=== PATIENT | male | born 1970 | race Caucasian/White ===

== ENCOUNTER 2018-06-21 08:35 | Inpatient (IN) ==
[2018-06-21] MEDS ORDERED: ONDANSETRON INJ 2 MG/ML 2 ML VIAL IV STA (09:00)
[2018-06-21] MEDS ORDERED: SODIUM CHLORIDE 0.9% 1000ML 1,000 ML IV SCH (09:00)
[2018-06-21 09:23] LABS: iSTAT Creatinine 0.8 mg/dl (0.6-1.3); iSTAT Hemoglobin 13.9 g/dl (14.0-18.0); iSTAT Ionized Calcium 1.15 mmol/l (1.12-1.32); iSTAT Potassium 3.5 mEq/L (3.3-5.0)
[2018-06-21 09:23] LABS: Basophils # (auto) 0.02 K/uL (0-0.2); Basophils % (auto) 0.3 %; Eosinophils # (auto) 0.01 K/uL (0-0.5); Eosinophils % (auto) 0.1 %; Hematocrit (blood only) 40.7 % (42-52); Hemoglobin 13.8 g/dL (14.0-18.0); Immature Granulocytes # (auto) 0.02 K/uL (0.00-0.02); Immature Granulocytes % (auto) 0.3 %; Lymphocytes # (auto) 0.66 K/uL (1.2-3.4); Lymphocytes % (auto) 8.3 %; Mean Corpuscular Hgb Conc 33.9 g/dL (32-36); Mean Corpuscular Volume 90.4 fL (80-100); Mean Platelet Volume 9.9 fL (7.4-10.4); Monocytes # (auto) 0.27 K/uL (0.11-0.59); Monocytes % (auto) 3.4 %; Neutrophils # (auto) 6.93 K/uL (1.4-6.5); Neutrophils % (auto) 87.6 %; Platelet Count 122 K/uL (130-400); RDW Coefficient of Variation 13.9 % (11.5-14.5); RDW Standard Deviation 45.1 fL (36.4-46.3); White Blood Count 7.91 K/uL (4.8-10.8)
[2018-06-21] MEDS ORDERED: MoRPHine SULFATE 2 MG/ML CARP IV STA ×3 (09:36→11:45)
[2018-06-21 09:43] LABS: Albumin Level 4.5 gm/dl (3.4-5.0); BUN Creatinine Ratio 12.8 (10-20); Calcium 9.4 mg/dl (8.5-10.1); Creatinine Clr Calc Pharmacy 74.9 ml/min; Est GFR (African American) 109.4; Est GFR (Non-African American) 94.4; Potassium 3.5 mmol/L (3.5-5.1)
[2018-06-21 09:46] LABS: Albumin Globulin Ratio 1.2 (0.9-2); Bilirubin,Total 0.5 mg/dl (0.2-1); Globulin 3.6 gm/dl (2.5-4.0); Total Protein 8.1 gm/dl (6.4-8.2)
[2018-06-21] MEDS ORDERED: IOVERSOL 100ml IV PRN (09:53)
--- NOTE | 2018-06-21 10:24 | CT Scan Report ---
CT abd pelvis IV con only CLINICAL HISTORY: Abdominal pain and vomiting. History of colon carcinoma. COMPARISON STUDY: 02/23/2018 TECHNIQUE: The patient was scanned in a dynamic helical fashion during intravenous administration of 93 cc of Optiray 320. A dose lowering technique was utilized adhering to the principles of ALARA. CT DOSE: 278.22 mGy.cm FINDINGS: Lower chest: The heart is normal in size and configuration, without pericardial effusion. The lung ba ses and pleural spaces are clear. Liver: The contrast-enhanced liver is normal in size, contour, and attenuation. There is no intrahepa tic biliary ductal dilatation. The hepatic veins and portal veins are patent. Gallbladder: Unremarkable. Spleen: Normal in size and attenuation. Pancreas: Unremarkable. Adrenal glands: Unremarkable. Kidneys: There is an 8 mm left renal cyst. No solid renal masses are visualized. There is no hydronep hrosis. Bowel: Postsurgical changes are present within the sigmoid. The sigmoid stent has been removed. There are mildly dilated left mid abdominal small bowel loops. There is slight tethering of the mesentery as visualized on coronal reformatted images. In addition there is a subtle mesenteric swelling patter n. An internal hernia cannot be excluded. The appendix appears normal. There is no acute diverticulit is. Peritoneum: There is no intraperitoneal free air or abdominal ascites. There is a tiny fat-containing umbilical hernia. Vasculature: The abdominal aorta is normal in course and caliber. Adenopathy: None. Pelvic viscera: The bladder, and pelvic viscera are unremarkable. Skeletal structures: No destructive osseous lesions are seen. IMPRESSION: 1. Interval colonic surgery with removal of the sigmoid stents 2. Normal appendix 3. Mildly dilated left upper quadrant small bowel loops. The findings may indicate a low-grade partia l small bowel obstruction. A high-grade bowel obstruction is not felt to be present. There is a subtl e mesenteric swirl pattern, as well as subtle tethering of the mesentery. And internal hernia cannot be excluded. Electronically signed by: Teo Holguin M.D. 06/21/2018 10:22 AM
[2018-06-21 11:08] LABS: Appearance Urine Turbid (Clear); Bacteria Urine Automated Negative (Negative); Bilirubin Urine Negative (Negative); Blood Urine Trace (Negative); Color Urine Dark Yellow; Epithelial Cell Urine Auto 20-30 /lpf (0-5); Glucose Urine UA Trace (Negative); Leukocyte Esterase Urine Negative (Negative); Nitrite Urine Negative (Negative); Protein Urine 1+ (Negative); Specific Gravity Urine 1.033 (1.000-1.030); Urobilinogen Urine Negative (Negative); pH Urine 5.5 (4.5-7.5)
[2018-06-21 11:10] LABS: Ketones Urine 3+ (Negative)
--- NOTE | 2018-06-21 12:14 | Surgery Consultation ---
Date of Consultation June 21, 2018 Assessment & Plan (1) Abdominal pain: 47 year-old male with history of colon cancer s/p sigmoid colon resection in February of 2018 currently on chemotherapy who presented to emergency department with nausea, vomiting, and abdominal pain x [address] scan showing mildly dilated small bowel loops in left upper abdomen in which a low grade partial SBO is possible. There is subtle mesenteric swirling and tethering in which an internal hernia cannot be excluded. ON examination his abdomen is mildly distended, soft, tender in the LLQ and more so in RLQ with guarding however no rigidity or peritonitis. Reviewed CT scan images with Dr. Holguin in which there is no signs of high grade bowel obstruction. Plan: No acute surgical indication required at this time. Reviewed CT scan images with patient and discussed possible need for surgical intervention if abdominal pain increases or if not return of bowel function. Recommend lactic acid Recommend admission by hospitalist Recommend conservative measures : NPO, IV fluids, pain management as needed, IV Zofran as needed. Recommend NGT is vomiting reoccurs Repeat am labs Encourage OOB to chair and ambulate SCDs for DVT prophylaxis Dr. Grimm has seen and examined patient, agrees with above. (2) Nausea and vomiting: likely secondary to low grade partial SBO plan as above History of Present Illness Reason for Consultation: Partial SBO, RLQ abdominal pain Requesting Physician: Vincenzo History of Present Illness Tony is a 47 year-old male with history of colon cancer s/p sigmoid colon resection by Dr. Valverde in February of 2018 and currently undergoing chemotherapy every 2 weeks for 12 cycles. Tony presented to emergency department today with complaint of abdominal pain with associated nausea and vomiting. States he had nausea and vomiting yesterday afternoon and then abdominal pain started. Pain located in lower abdomen. Starts at the belly button and radiates to the lower quadrants. Pain more located on right side. Pain described as sharp stabbing pain. Currently rating pain 8/10. 6/10 on presentation. States pain severe at times that doubled him over. 3-4 episodes of vomiting this morning. States he usually has constipation due to the c hemotherapy. Denies of any diarrhea, blood in stools, or black/tarry stools. Usually does not get nauseated with chemo treatments. 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 Weight fluctuates with chemo treatments. Emergency room work-up included labs which showed no leukocytosis or neutropenia. CMP within normal limits. CT scan of abdomen and pelvis with IV contrast showing mildly dilated small bowel loops in left abdomen with subtle mesenteric swirl pattern and subtle tethering of the mesentary in which an internal hernia cannot be excluded. Allergies Allergy/AdvReac Type Severity Reaction Status Date / Time aspirin AdvReac Unknown Nose Bleed Verified 06/21/18 09:23 Home Medications Home Medications Medication Instructions Recorded Confirmed Type multivitamin 1 tab PO DAILY 02/23/18 06/21/18 History thiamine HCl (vitamin B1) 100 mg PO DAILY 02/23/18 06/21/18 History Patient History Social History Preferred Language: Japanese Beliefs That Will Affect Care: None Current Living Situation: Alone Feels Safe at Home: Yes Smoking Status: Never smoker Hx Alcohol Use: Yes (QUIT JANUARY 2018) Hx Substance Use: No Review of Systems Constitutional: as per Subjective / HPI and + anorexia; no fever and no sweats Respiratory: see below Gastrointestinal: as per Subjective / HPI, + abdominal pain, + bloating, + nausea, + vomiting and + constipation; no change in stools, no diarrhea/loose stools, no blood in stools and no melena Physical Exam Vital Signs (Past 24 Hours): Last Vital Signs Temp 36.7 C 06/21/18 08:40 Pulse 44 L 06/21/18 11:00 Resp 20 06/21/18 11:00 BP 150/84 H 06/21/18 11:00 Pulse Ox 97 06/21/18 11:00 Constitutional: WD/WN, vitals as above + thin; no acute distress Respiratory: no respiratory distress Gastrointestinal (Abdomen): Inspection/Auscultation: + abdomen distended (mild) Percussion/Palpation: + abdomen tender (in the lower abdomen , more so in RLQ), + guarding (RLQ) and abdomen soft; abdomen not rigid Skin: no rashes, warm and dry Psychiatric: Orientation: alert and oriented x 3 Affect: + flat affect Results & Data Laboratory Results 06/21/18 06/21/18 06/21/18 Range/Units 10:58 09:10 09:03 WBC (4.8-10.8) K/uL RBC (4.7-6.1) M/uL Hgb (14.0-18.0) g/dL POC Hgb 13.9 L (14.0-18.0) g/dl Hct (42-52) % POC Hct 41 L (42-52) % MCV (80-100) fL MCH (25-34) pg MCHC (32-36) g/dL RDW Std Deviation (36.4-46.3) fL RDW Coeff of Natasha (11.5-14.5) % Plt Count (130-400) K/uL MPV (7.4-10.4) fL Immature Gran % (Auto) % Neut % (Auto) % Lymph % (Auto) % [place] % (Auto) % Eos % (Auto) % Baso % (Auto) % Immature Gran # (Auto) (0.00-0.02) K/uL Neut # (Auto) (1.4-6.5) K/uL Lymph # (Auto) (1.2-3.4) K/uL [place] # (Auto) (0.11-0.59) K/uL Eos # (Auto) (0-0.5) K/uL Baso # (Auto) (0-0.2) K/uL POC Sodium 142 (135-144) mEq/L Sodium 141 (136-145) mmol/L POC Potassium 3.5 (3.3-5.0) mEq/L Potassium 3.5 (3.5-5.1) mmol/L POC Chloride 102 (101-112) mEq/L Chloride 104 (98-107) mmol/L Carbon Dioxide 26 (21-32) mmol/L POC Total CO2 26 (24-31) mEq/l Anion Gap 11.0 (3-11) POC Anion Gap 19.0 (16-25) mmol/L POC BUN 12 (7-18) mg/dl BUN 12 (7-18) mg/dl Creatinine 0.96 (0.6-1.4) mg/dl POC Creatinine 0.8 (0.6-1.3) mg/dl Est Cr Clr Drug Dosing 74.9 ml/min Est GFR ( Amer) 109.4 Est GFR (Non-Af Amer) 94.4 BUN/Creatinine Ratio 12.8 (10-20) Glucose 151 H (70-99) mg/dl POC Glucose (other) 155 H (70-99) mg/dl Calcium 9.4 (8.5-10.1) mg/dl POC Ioniz Calcium Jake 1.15 (1.12-1.32) mmol/l Total Bilirubin 0.5 (0.2-1) mg/dl AST 23 (15-37) U/L ALT 32 (12-78) U/L Alkaline Phosphatase 77 (45-117) U/L Total Protein 8.1 (6.4-8.2) gm/dl Albumin 4.5 (3.4-5.0) gm/dl Globulin 3.6 (2.5-4.0) gm/dl Albumin/Globulin Ratio 1.2 (0.9-2) Lipase 225 (73-393) U/L Urine Color Dark Yellow Urine Appearance Turbid H (Clear) Urine pH 5.5 (4.5-7.5) Ur Specific Oden 1.033 H (1.000-1.030) Urine Protein 1+ H (Negative) Urine Glucose (UA) Trace H (Negative) Urine Ketones 3+ H (Negative) Urine Blood Trace H (Negative) Urine Nitrite Negative (Negative) Urine Bilirubin Negative (Negative) Urine Urobilinogen Negative (Negative) Ur Leukocyte Esterase Negative (Negative) Urine WBC (Auto) 1-5 (0-5) /hpf Urine RBC (Auto) 5-10 H (0-4) /hpf U Hyaline Cast (Auto) 10-30 H (0-5) /lpf U Epithel Cells (Auto) 20-30 H (0-5) /lpf Urine Bacteria (Auto) Negative (Negative) 06/21/18 Range/Units 09:03 WBC 7.91 (4.8-10.8) K/uL RBC 4.50 L (4.7-6.1) M/uL Hgb 13.8 L (14.0-18.0) g/dL POC Hgb (14.0-18.0) g/dl Hct 40.7 L (42-52) % POC Hct (42-52) % MCV 90.4 (80-100) fL MCH 30.7 (25-34) pg MCHC 33.9 (32-36) g/dL RDW Std Deviation 45.1 (36.4-46.3) fL RDW Coeff of Natasha 13.9 (11.5-14.5) % Plt Count 122 L (130-400) K/uL MPV 9.9 (7.4-10.4) fL Immature Gran % (Auto) 0.3 % Neut % (Auto) 87.6 % Lymph % (Auto) 8.3 % [place] % (Auto) 3.4 % Eos % (Auto) 0.1 % Baso % (Auto) 0.3 % Immature Gran # (Auto) 0.02 (0.00-0.02) K/uL Neut # (Auto) 6.93 H (1.4-6.5) K/uL Lymph # (Auto) 0.66 L (1.2-3.4) K/uL [place] # (Auto) 0.27 (0.11-0.59) K/uL Eos # (Auto) 0.01 (0-0.5) K/uL Baso # (Auto) 0.02 (0-0.2) K/uL POC Sodium (135-144) mEq/L Sodium (136-145) mmol/L POC Potassium (3.3-5.0) mEq/L Potassium (3.5-5.1) mmol/L POC Chloride (101-112) mEq/L Chloride (98-107) mmol/L Carbon Dioxide (21-32) mmol/L POC Total CO2 (24-31) mEq/l Anion Gap (3-11) POC Anion Gap (16-25) mmol/L POC BUN (7-18) mg/dl BUN (7-18) mg/dl Creatinine (0.6-1.4) mg/dl POC Creatinine (0.6-1.3) mg/dl Est Cr Clr Drug Dosing ml/min Est GFR ( Amer) Est GFR (Non-Af Amer) BUN/Creatinine Ratio (10-20) Glucose (70-99) mg/dl POC Glucose (other) (70-99) mg/dl Calcium (8.5-10.1) mg/dl POC Ioniz Calcium Jake (1.12-1.32) mmol/l Total Bilirubin (0.2-1) mg/dl AST (15-37) U/L ALT (12-78) U/L Alkaline Phosphatase (45-117) U/L Total Protein (6.4-8.2) gm/dl Albumin (3.4-5.0) gm/dl Globulin (2.5-4.0) gm/dl Albumin/Globulin Ratio (0.9-2) Lipase (73-393) U/L Urine Color Urine Appearance (Clear) Urine pH (4.5-7.5) Ur Specific Oden (1.000-1.030) Urine Protein (Negative) Urine Glucose (UA) (Negative) Urine Ketones (Negative) Urine Blood (Negative) Urine Nitrite (Negative) Urine Bilirubin (Negative) Urine Urobilinogen (Negative) Ur Leukocyte Esterase (Negative) Urine WBC (Auto) (0-5) /hpf Urine RBC (Auto) (0-4) /hpf U Hyaline Cast (Auto) (0-5) /lpf U Epithel Cells (Auto) (0-5) /lpf Urine Bacteria (Auto) (Negative) Diagnostic Findings CT abd pelvis IV con only CLINICAL HISTORY: Abdominal pain and vomiting. History of colon carcinoma. COMPARISON STUDY: 02/23/2018 TECHNIQUE: The patient was scanned in a dynamic helical fashion during intravenous administration of 93 cc of Optiray 320. A dose lowering technique was utilized adhering to the principles of ALARA. CT DOSE: 278.22 mGy.cm FINDINGS: Lower chest: The heart is normal in size and configuration, without pericardial effusion. The lung bases and pleural spaces are clear. Liver: The contrast-enhanced liver is normal in size, contour, and attenuation. There is no intrahepatic biliary ductal dilatation. The hepatic veins and portal veins are patent. Gallbladder: Unremarkable. Spleen: Normal in size and attenuation. Pancreas: Unremarkable. Adrenal glands: Unremarkable. Kidneys: There is an 8 mm left renal cyst. No solid renal masses are visualized. There is no hydronephrosis. Bowel: Postsurgical changes are present within the sigmoid. The sigmoid stent has been removed. There are mildly dilated left mid abdominal small bowel loops. There is slight tethering of the mesentery as visualized on coronal reformatted images. In addition there is a subtle mesenteric swelling pattern. An internal hernia cannot be excluded. The appendix appears normal. There is no acute diverticulitis. Peritoneum: There is no intraperitoneal free air or abdominal ascites. There is a tiny fat-containing umbilical hernia. Vasculature: The abdominal aorta is normal in course and caliber. Adenopathy: None. Pelvic viscera: The bladder, and pelvic viscera are unremarkable. Skeletal structures: No destructive osseous lesions are seen. IMPRESSION: 1. Interval colonic surgery with removal of the sigmoid stents 2. Normal appendix 3. Mildly dilated left upper quadrant small bowel loops. The findings may indicate a low-grade partial small bowel obstruction. A high-grade bowel obstruction is not felt to be present. There is a subtle mesenteric swirl pattern, as well as subtle tethering of the mesentery. And internal hernia cannot be excluded.
[2018-06-21] MEDS ORDERED: HYDROmorphone INJ 0.5 MG/0.5 ML SYR ONE (13:19)
--- NOTE | 2018-06-21 13:42 | History and Physical Report ---
DATE OF ADMISSION: 06/21/2018 CHIEF COMPLAINT: Abdominal pain. HISTORY OF PRESENT ILLNESS: This is a 47-year-old male with past medical history significant for colon cancer, status post sigmoid colon resection in February 2018, currently on chemotherapy every 2 weeks for 12 weeks, presents with abdominal pain, nausea and vomiting. The patient's pain started yesterday and he has few episodes of vomiting, moderate in severity, currently improved with pain medications. He says he moved his bowels yesterday and it was normal. No blood in the stools or black stools. Normal bladder movements. No burning micturition, no hematuria. He says his appetite is okay until yesterday, he was sleeping okay and he said he might have lost a few pounds of weight. Denies any chest pain, no shortness of breath, no cough, no fever, no chills, no headache, no blurred vision, no earache, no runny nose, no sore throat, no difficulty swallowing. No rash, no easy bruising or bleeding. Currently, resting comfortable and hemodynamically stable. ALLERGIES: No known drug allergies. PAST MEDICAL HISTORY: As mentioned above. PAST SURGICAL HISTORY: Sigmoid colonoscopy and sigmoid colon resection. MEDICATIONS: Multivitamin, thiamine, folic acid. FAMILY HISTORY: Significant for paternal grandmother who had colon cancer. Father has diabetes. Mother has diabetes, and also his father and grandfather also diagnosed with colon cancer with colon and breast cancer in the mother's side. SOCIAL HISTORY: Single, lives alone. No tobacco. Used to drink alcohol in the past, but he says he is not drinking lately. No drug use. REVIEW OF SYMPTOMS: As per HPI. Rest of review of systems is negative. PHYSICAL EXAMINATION: GENERAL: The patient is of moderate build, not in acute distress. VITAL SIGNS: Temperature 36.7, pulse 44, blood pressure 155/84, oxygen 97% on room air. HEENT: No pallor, no icterus. Pupils equal, round, reactive to light. NECK: No JVD or neck masses, no carotid bruit. CARDIOVASCULAR: S1, S2 heard. Bradycardia. No murmurs. RESPIRATORY SYSTEM: Clear to auscultation bilaterally. No wheezing, no crackles. ABDOMEN: Soft. Bowel sounds, sluggish. Diffuse abdominal tenderness. Mild guarding. No distention seen. CENTRAL NERVOUS SYSTEM: Cranial nerves II-XII grossly intact. Nonfocal. EXTREMITIES: No edema, no erythema. LABORATORY DATA: WBC 7.9, hemoglobin 13.8, hematocrit 40.7, platelets 122. Sodium 141, potassium 3.5, chloride 104, CO2 of 26, BUN 12, creatinine 0.9, serum glucose 151, total bilirubin 0.5, AST 23, ALT 32, alkaline phosphatase 77, lipase 225. Urinalysis positive for ketones. CT abdomen and pelvis shows interval colon surgery with removal of sigmoid stents. Normal appendix, mildly dilated left upper quadrant and small bowel loops. This finding may indicate a low-grade partial small-bowel obstruction and high-grade partial small-bowel obstruction not felt to be present. There is subtle mesenteric swirling pattern as well as subtle thickening of the mesentery and internal hernia cannot be excluded. ASSESSMENT AND PLAN: This 47-year-old male with a history of colon cancer, status post sigmoid resection, presents with a small-bowel obstruction. 1. Abdominal pain, partial small-bowel obstruction, questionable internal hernia. Currently pain improved with r pain medications. Place him on n.p.o., IV fluids, IV antiemetics and iv pain meds prn. If the patient develops nausea or worsening pain, we will place him on NG tube.Surgery on board. Follow the repeat imaging studies in a.m. Closely monitor in the medical floor. 2. Bradycardia, could be from the pain or pain medications. We will closely monitor. 3. History of colon cancer, status post sigmoid resection. Follows with hematology/oncology, has been getting chemo every 2 weeks. Follow up with hematology/oncology on discharge. 4. Thrombocytopenia and anemia probably from the chemo. We will follow the labs. 5. History of alcoholism. He says he is currently not drinking. We will give him banana bag and place on thiamine, folic acid and IV Ativan p.r.n. 6. Deep venous thrombosis prophylaxis, SCDs for now. 9. Disposition: Close monitor in the med/surg. Level 1 full code. MTDD
[2018-06-21] MEDS ORDERED: MULTI-VITAMIN INFUSION 10 ML, THIAMINE HCL 100 MG, FOLIC ACID 1 MG in SODIUM CHLORIDE 0... IV SCH (13:59)
[2018-06-21] MEDS ORDERED: ACETAMINOPHEN 325 MG TAB PO PRN (13:59)
[2018-06-21] MEDS ORDERED: ONDANSETRON INJ 2 MG/ML 2 ML VIAL IV PRN (13:59)
[2018-06-21] MEDS ORDERED: LORazepam 1 MG/2 ML VIAL IV PRN (13:59)
[2018-06-21] MEDS ORDERED: HYDROmorphone INJ 0.5 MG/0.5 ML SYR IV PRN (13:59)
--- NOTE | 2018-06-21 15:29 | Emergency Department Note ---
Entered by Dora Albert acting as a scribe for Ryan Loya MD History of Present Illness General Chief complaint: Abdominal Pain Stated complaint: AB PAIN, VOMITING Time Seen by Provider: 06/21/18 08:52 Source: patient History of Present Illness Provider complaint: abdominal pain and vomiting Onset (ago): day(s) (yesterday ) Location: abdomen Pain Consistency: + other (persistent) Maximum Pain Intensity: 8 Current Pain Intensity: 7 Quality: + other (abdominal pain, vomiting) Associated symptoms: + other (dry heaving. Denies: fever, burning with urination, blood in urine, bloody stool, diarrhea, chest pain, shortness of breath, back pain, headache, pain or swelling in groin.) The patient is a 47 year old male who presents to the Emergency Room with complaints of persistent abdominal pain and vomiting beginning yesterday. He notes he vomited 4 times today and has been dry heaving. The patient rates his current pain a 6-7/10 in severity. He denies fever, burning with urination, blood in urine, bloody stool, diarrhea, chest pain, shortness of breath, back pain, headache, or pain or swelling in groin. He reports he has colon cancer and last had chemo 10 days ago. The patient sees Dr. Donis as his oncologist. He is treated with FOLFOX IV every 2 weeks and Zofran and Compazine as needed. Home Medications Home Medications Medication Instructions Recorded Confirmed Type multivitamin 1 tab PO DAILY 02/23/18 06/21/18 History thiamine HCl (vitamin B1) 100 mg PO DAILY 02/23/18 06/21/18 History Allergies Allergy/AdvReac Type Severity Reaction Status Date / Time aspirin AdvReac Unknown Nose Bleed Verified 06/21/18 09:23 Past Med/Surg History Medical History Moderate protein-calorie malnutrition Alcohol abuse (Chronic) Colonic mass (Resolved) Colonic obstruction (Resolved) Hypophosphatemia (Inactive) Colon cancer Hypokalemia Surgical History S/P gastrointestinal surgery (Chronic) colonic mass stent 02/06/18 --> NO LONGER IN. H/O hemicolectomy Sigmoid colectomy 11/20/18 MAC#3, ETT #7.0 Hi Lo, Grade 2 view, Attraumatic with DL x 1. 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 and A total of 10 systems reviewed and were otherwise negative Physical Exam Vital Signs Vital Signs - 24 hr 06/21/18 08:40 06/21/18 11:00 06/21/18 12:00 Temperature 36.7 C Temperature Source Oral Sepsis Recent Fever Within 48 Hours No Sepsis New/Unexplained Change in Mental Status No Sepsis Action Taken by Nursing No Action Required Pulse Rate 53 L 48 L 50 L Pulse Rate [Right Finger] 44 L Pulse Rate from SpO2 Sensor 50 L 49 L Pulse Rhythm [Right Finger] Regular Pulse Strength [Right Finger] Normal Respiratory Rate 16 12 12 Respiratory Effort / Characteristics Non-Labored Spontaneous Non-Labored Spontaneous Respiratory Depth Normal Normal Respiratory Pattern Regular Blood Pressure 154/90 H 150/84 H 137/87 Blood Pressure [Left Arm] 150/84 H Blood Pressure [Right Arm] Blood Pressure Mean 111 106 103 Blood Pressure Mean [Left Arm] 106 Blood Pressure Mean [Right Arm] Blood Pressure Position Sitting Blood Pressure Position [Right Arm] Pulse Oximetry 100 99 99 Oxygen Delivery Method Room Air Room Air 06/21/18 12:58 06/21/18 13:00 06/21/18 13:33 Temperature Temperature Source Sepsis Recent Fever Within 48 Hours Sepsis New/Unexplained Change in Mental Status Sepsis Action Taken by Nursing Pulse Rate 49 L 50 L Pulse Rate [Right Finger] Pulse Rate from SpO2 Sensor 49 L Pulse Rhythm [Right Finger] Pulse Strength [Right Finger] Respiratory Rate 12 20 Respiratory Effort / Characteristics Non-Labored Respiratory Depth Normal Respiratory Pattern Regular Blood Pressure 148/76 H 148/76 H Blood Pressure [Left Arm] Blood Pressure [Right Arm] Blood Pressure Mean 100 Blood Pressure Mean [Left Arm] Blood Pressure Mean [Right Arm] Blood Pressure Position Blood Pressure Position [Right Arm] Pulse Oximetry 100 99 Oxygen Delivery Method Room Air Room Air Room Air 06/21/18 13:55 Temperature 36.7 C Temperature Source Oral Sepsis Recent Fever Within 48 Hours Sepsis New/Unexplained Change in Mental Status Sepsis Action Taken by Nursing Pulse Rate Pulse Rate [Right Finger] 55 L Pulse Rate from SpO2 Sensor Pulse Rhythm [Right Finger] Regular Pulse Strength [Right Finger] Normal Respiratory Rate 15 Respiratory Effort / Characteristics Non-Labored Spontaneous Respiratory Depth Normal Respiratory Pattern Regular Blood Pressure Blood Pressure [Left Arm] Blood Pressure [Right Arm] 115/70 Blood Pressure Mean Blood Pressure Mean [Left Arm] Blood Pressure Mean [Right Arm] 85 Blood Pressure Position Blood Pressure Position [Right Arm] Sitting Pulse Oximetry 97 Oxygen Delivery Method Room Air General: Non-ill appearing slender middle-aged male in no acute distress. HEENT: Normal cephalic atraumatic. Pupils are equal round and reactive to light. Extraocular movements are intact. Oropharynx is pink with moist mucous membranes. No swelling of the mouth lips or tongue. Neck: Supple with a midline trachea. No meningeal signs or stiffness, no JVD or bruits. No Stridor. Chest: Clear to auscultation bilaterally. No wheezes or rhonchi. No increased work of breathing. Heart: regular rate and rhythm. Abdomen: Soft, nondistended without rebound guarding or rigidity. Moderately tender in right lower abdomen. Central post-surgical scar that is not red or warm. No hernia appreciated Extremities: No cyanosis clubbing or edema. No calf tenderness or assymetry Spine/Back. Non tender to palpation. No CVA tenderness Skin: Good turgor without rashes. Neurologic exam: Cranial nerves two through 12 are intact. Motor and sensation are intact and symmetrical throughout. Course 0851: Past medical records reviewed. The patient was evaluated in room A10, and a complete history and physical examination were performed. 1038: Upon reevaluation, the patient states he has a similar level of pain. His CT shows a small bowel obstruction. 1042: I reviewed the patient's case with Marylou Paris PA-C, general surgery. She will evaluate the patient for further management. 1133: The patient states he feels more comfortable but still has pain. He notes he had hiccups which have resolved. 1158: Discussed the case with Dr. Grimm, general surgery. He does not feel the patient needs acute operation and recommends medical management. 1203: [facility] the [facility] will [facility] the patient for further management. 1207: Upon reevaluation, the patient is resting. I discussed test results. They verbalized agreement with the treatment plan. Consultations Consultation #1: Marylou Paris PA-C, general surgery Time: 10:42 Consultation #2: Dr. Grimm, general surgery Time: 11:58 Consultation #3: Dr. Martinez, [facility] Time: 12:03 Administered Medications Discontinued Medications Hydromorphone HCl (Dilaudid) Confirm Administered Dose 0.5 mg .ROUTE .STK-MED ONE Stop: 06/21/18 13:20 Last Admin: 06/21/18 13:22 Dose: 0.5 mg Documented by: [id number] Sodium Chloride (Nss 1000ml) 1,000 mls @ 999 mls/hr IV .Q1H1M KB Stop: 06/21/18 10:00 Last Infusion: 06/21/18 11:02 Dose: 0 mls/hr Documented by: [id number] Admin: 06/21/18 09:45 Dose: 999 mls/hr Documented by: [id number] Multivitamins 10 ml/ Thiamine HCl 100 mg/ Folic Acid 1 mg/Sodium Chloride 1,011.2 mls @ 999 mls/hr IV .Q1H1M KB Stop: 06/21/18 14:59 Last Admin: 06/21/18 14:47 Dose: 999 mls/hr Documented by: [id number] Ioversol (Optiray 320 100ml) 93 ml IV ONCE PRN PRN Reason: Interaction Checking Stop: 06/25/18 09:52 Last Admin: 06/21/18 09:53 Dose: 93 ml Documented by: [id number] Morphine Sulfate (Morphine Sulfate) 2 mg IV NOW STA Stop: 06/21/18 09:37 Last Admin: 06/21/18 09:41 Dose: 2 mg Documented by: [id number] Morphine Sulfate (Morphine Sulfate) 2 mg IV NOW STA Stop: 06/21/18 10:42 Last Admin: 06/21/18 10:55 Dose: 2 mg Documented by: [id number] Morphine Sulfate (Morphine Sulfate) 2 mg IV NOW STA Stop: 06/21/18 11:46 Last Admin: 06/21/18 12:01 Dose: 2 mg Documented by: [id number] Ondansetron HCl (Zofran) 4 mg IV NOW STA Stop: 06/21/18 09:01 Last Admin: 06/21/18 09:41 Dose: 4 mg Documented by: [id number] Medical Decision Making Differential Diagnosis Etiologies considered include appendicitis, cancer complication, dehydration, bowel obstruction, infectious, electrolyte or metabolic abnormality, UTI. Medical Records Attestation: I reviewed the patient's medical records. Home Medications Current Medication List: was personally reviewed by me Laboratory Data Attestation: I reviewed the patient's lab results. Result diagrams: 06/21/18 09:03 06/21/18 09:03 Lab Results 06/21/18 06/21/18 06/21/18 Range/Units 09:03 09:03 09:10 WBC 7.91 (4.8-10.8) K/uL RBC 4.50 L (4.7-6.1) M/uL Hgb 13.8 L (14.0-18.0) g/dL POC Hgb 13.9 L (14.0-18.0) g/dl Hct 40.7 L (42-52) % POC Hct 41 L (42-52) % MCV 90.4 (80-100) fL MCH 30.7 (25-34) pg MCHC 33.9 (32-36) g/dL RDW Std Deviation 45.1 (36.4-46.3) fL RDW Coeff of Natasha 13.9 (11.5-14.5) % Plt Count 122 L (130-400) K/uL MPV 9.9 (7.4-10.4) fL Immature Gran % (Auto) 0.3 % Neut % (Auto) 87.6 % Lymph % (Auto) 8.3 % [place] % (Auto) 3.4 % Eos % (Auto) 0.1 % Baso % (Auto) 0.3 % Immature Gran # (Auto) 0.02 (0.00-0.02) K/uL Neut # (Auto) 6.93 H (1.4-6.5) K/uL Lymph # (Auto) 0.66 L (1.2-3.4) K/uL [place] # (Auto) 0.27 (0.11-0.59) K/uL Eos # (Auto) 0.01 (0-0.5) K/uL Baso # (Auto) 0.02 (0-0.2) K/uL POC Sodium 142 (135-144) mEq/L Sodium 141 (136-145) mmol/L POC Potassium 3.5 (3.3-5.0) mEq/L Potassium 3.5 (3.5-5.1) mmol/L POC Chloride 102 (101-112) mEq/L Chloride 104 (98-107) mmol/L Carbon Dioxide 26 (21-32) mmol/L POC Total CO2 26 (24-31) mEq/l Anion Gap 11.0 (3-11) POC Anion Gap 19.0 (16-25) mmol/L POC BUN 12 (7-18) mg/dl BUN 12 (7-18) mg/dl Creatinine 0.96 (0.6-1.4) mg/dl POC Creatinine 0.8 (0.6-1.3) mg/dl Est Cr Clr Drug Dosing 74.9 ml/min Est GFR ( Amer) 109.4 Est GFR (Non-Af Amer) 94.4 BUN/Creatinine Ratio 12.8 (10-20) Glucose 151 H (70-99) mg/dl POC Glucose (other) 155 H (70-99) mg/dl Lactate (0.4-2.0) mmol/L Calcium 9.4 (8.5-10.1) mg/dl POC Ioniz Calcium Jake 1.15 (1.12-1.32) mmol/l Total Bilirubin 0.5 (0.2-1) mg/dl AST 23 (15-37) U/L ALT 32 (12-78) U/L Alkaline Phosphatase 77 (45-117) U/L Total Protein 8.1 (6.4-8.2) gm/dl Albumin 4.5 (3.4-5.0) gm/dl Globulin 3.6 (2.5-4.0) gm/dl Albumin/Globulin Ratio 1.2 (0.9-2) Lipase 225 (73-393) U/L Urine Color Urine Appearance (Clear) Urine pH (4.5-7.5) Ur Specific [place] (1.000-1.030) Urine Protein (Negative) Urine Glucose (UA) (Negative) Urine Ketones (Negative) Urine Blood (Negative) Urine Nitrite (Negative) Urine Bilirubin (Negative) Urine Urobilinogen (Negative) Ur Leukocyte Esterase (Negative) Urine WBC (Auto) (0-5) /hpf Urine RBC (Auto) (0-4) /hpf U Hyaline Cast (Auto) (0-5) /lpf U Epithel Cells (Auto) (0-5) /lpf Urine Bacteria (Auto) (Negative) 06/21/18 06/21/18 Range/Units 10:58 12:10 WBC (4.8-10.8) K/uL RBC (4.7-6.1) M/uL Hgb (14.0-18.0) g/dL POC Hgb (14.0-18.0) g/dl Hct (42-52) % POC Hct (42-52) % MCV (80-100) fL MCH (25-34) pg MCHC (32-36) g/dL RDW Std Deviation (36.4-46.3) fL RDW Coeff of Natasha (11.5-14.5) % Plt Count (130-400) K/uL MPV (7.4-10.4) fL Immature Gran % (Auto) % Neut % (Auto) % Lymph % (Auto) % [place] % (Auto) % Eos % (Auto) % Baso % (Auto) % Immature Gran # (Auto) (0.00-0.02) K/uL Neut # (Auto) (1.4-6.5) K/uL Lymph # (Auto) (1.2-3.4) K/uL [place] # (Auto) (0.11-0.59) K/uL Eos # (Auto) (0-0.5) K/uL Baso # (Auto) (0-0.2) K/uL POC Sodium (135-144) mEq/L Sodium (136-145) mmol/L POC Potassium (3.3-5.0) mEq/L Potassium (3.5-5.1) mmol/L POC Chloride (101-112) mEq/L Chloride (98-107) mmol/L Carbon Dioxide (21-32) mmol/L POC Total CO2 (24-31) mEq/l Anion Gap (3-11) POC Anion Gap (16-25) mmol/L POC BUN (7-18) mg/dl BUN (7-18) mg/dl Creatinine (0.6-1.4) mg/dl POC Creatinine (0.6-1.3) mg/dl Est Cr Clr Drug Dosing ml/min Est GFR ( Amer) Est GFR (Non-Af Amer) BUN/Creatinine Ratio (10-20) Glucose (70-99) mg/dl POC Glucose (other) (70-99) mg/dl Lactate 1.4 (0.4-2.0) mmol/L Calcium (8.5-10.1) mg/dl POC Ioniz Calcium Jake (1.12-1.32) mmol/l Total Bilirubin (0.2-1) mg/dl AST (15-37) U/L ALT (12-78) U/L Alkaline Phosphatase (45-117) U/L Total Protein (6.4-8.2) gm/dl Albumin (3.4-5.0) gm/dl Globulin (2.5-4.0) gm/dl Albumin/Globulin Ratio (0.9-2) Lipase (73-393) U/L Urine Color Dark Yellow Urine Appearance Turbid H (Clear) Urine pH 5.5 (4.5-7.5) Ur Specific [place] 1.033 H (1.000-1.030) Urine Protein 1+ H (Negative) Urine Glucose (UA) Trace H (Negative) Urine Ketones 3+ H (Negative) Urine Blood Trace H (Negative) Urine Nitrite Negative (Negative) Urine Bilirubin Negative (Negative) Urine Urobilinogen Negative (Negative) Ur Leukocyte Esterase Negative (Negative) Urine WBC (Auto) 1-5 (0-5) /hpf Urine RBC (Auto) 5-10 H (0-4) /hpf U Hyaline Cast (Auto) 10-30 H (0-5) /lpf U Epithel Cells (Auto) 20-30 H (0-5) /lpf Urine Bacteria (Auto) Negative (Negative) Imaging Data Radiologist's Impression: Radiology results as stated below per my review and the radiologist's interpretation: CT abd pelvis IV con only CLINICAL HISTORY: Abdominal pain and vomiting. History of colon carcinoma. COMPARISON STUDY: 02/23/2018 TECHNIQUE: The patient was scanned in a dynamic helical fashion during intravenous administration of 93 cc of Optiray 320. A dose lowering technique was utilized adhering to the principles of ALARA. CT DOSE: 278.22 mGy.cm FINDINGS: Lower chest: The heart is normal in size and configuration, without pericardial effusion. The lung bases and pleural spaces are clear. Liver: The contrast-enhanced liver is normal in size, contour, and attenuation. There is no intrahepatic biliary ductal dilatation. The hepatic veins and portal veins are patent. Gallbladder: Unremarkable. Spleen: Normal in size and attenuation. Pancreas: Unremarkable. Adrenal glands: Unremarkable. Kidneys: There is an 8 mm left renal cyst. No solid renal masses are visualized. There is no hydronephrosis. Bowel: Postsurgical changes are present within the sigmoid. The sigmoid stent has been removed. There are mildly dilated left mid abdominal small bowel loops. There is slight tethering of the mesentery as visualized on coronal reformatted images. In addition there is a subtle mesenteric swelling pattern. An internal hernia cannot be excluded. The appendix appears normal. There is no acute diverticulitis. Peritoneum: There is no intraperitoneal free air or abdominal ascites. There is a tiny fat-containing umbilical hernia. Vasculature: The abdominal aorta is normal in course and caliber. Adenopathy: None. Pelvic viscera: The bladder, and pelvic viscera are unremarkable. Skeletal structures: No destructive osseous lesions are seen. IMPRESSION: 1. Interval colonic surgery with removal of the sigmoid stents 2. Normal appendix 3. Mildly dilated left upper quadrant small bowel loops. The findings may indica te a low-grade partial small bowel obstruction. A high-grade bowel obstruction is not felt to be present. There is a subtle mesenteric swirl pattern, as well as subtle tethering of the mesentery. And internal hernia cannot be excluded. Electronically signed by: Teo Holguin M.D. 06/21/2018 10:22 AM Blood Pressure Blood Pressure Findings: Elevated blood pressure Blood Pressure Disposition: Referred to patients primary care provider [facility] Narrative This patient comes in as described above. He was placed in room A10. He is having abdominal pain mostly in the right lower abdomen. This is complicated by his history of colon cancer and current chemotherapeutic treatments. He had surgery at the end of last year and his last chemo was about 2 weeks ago. He has had no fever he did have some vomiting lower abdominal pain starting last evening. On exam, he appears uncomfortable. his abdomen is moderately tender in the right lower abdomen. IV access established and he was htdrated with IV normal saline. He was given multiple doses of IV morphine which would help with the pain but it would return. His white count is not significant elevated. he has no acute electrolyte or metabolic abnormalities. I did do a CAT scan with IV contrast which shows findings consistent with a small bowel obstruction, it does not appear to be high-grade. The radiologist also said they could not exclude an internal hernia and in light of this and his ongoing pain, I consulted surgery to see him in the ER. Dr. Grimm saw him and recommended that he be admitted to medicine he did not feel that he needed acute surgery at this point but did warrant observation. he also recommended we order lactic acid which I did. the patient was given hydration IV in the ER as well as multiple pain medication. I did consult the [facility] hospitalist to see him in the ER for further inpatient treatment and evaluation. Impression & Plan Abdominal pain, RLQ, Small bowel obstruction, Colon cancer, Vomiting Discharge Plan Visit Data *Final* Discharge Date/Time: 06/21/18 13:33 Chief Complaint: Abdominal Pain Stated Complaint: AB PAIN, VOMITING ED Provider: Ryan Loya Discharge Problem: Abdominal pain, RLQ, Small bowel obstruction, Colon cancer, Vomiting Patient Disposition: Being Evaluated by Hospitalist Discharge Instructions Interventions: ED Discharge Assessment Last Done: 06/21/18 13:33 The scribe's documentation has been prepared under my direction and personally reviewed by me in its entirety. I confirm that the note above accurately reflects all work, treatment, procedures, and medical decision making performed by me.
[2018-06-21] MEDS: NSS + 20MEQ KCL 20 MEQ/1,000 ML BAG IV SCH ×2 (16:00→23:13)
[2018-06-22 06:06] LABS: Hematocrit (blood only) 32.8 % (42-52); Hemoglobin 10.8 g/dL (14.0-18.0); Mean Corpuscular Hgb Conc 32.9 g/dL (32-36); Mean Corpuscular Volume 91.6 fL (80-100); Mean Platelet Volume 9.2 fL (7.4-10.4); Platelet Count 85 K/uL (130-400); RDW Coefficient of Variation 14.1 % (11.5-14.5); RDW Standard Deviation 46.8 fL (36.4-46.3); Red Blood Count 3.58 M/uL (4.7-6.1); White Blood Count 4.61 K/uL (4.8-10.8)
[2018-06-22 06:10] LABS: Basophils # (auto) 0.01 K/uL (0-0.2); Basophils % (auto) 0.2 %; Eosinophils # (auto) 0.02 K/uL (0-0.5); Eosinophils % (auto) 0.4 %; Lymphocytes # (auto) 1.58 K/uL (1.2-3.4); Lymphocytes % (auto) 34.3 %; Monocytes # (auto) 0.31 K/uL (0.11-0.59); Monocytes % (auto) 6.7 %; Neutrophils # (auto) 2.69 K/uL (1.4-6.5); Neutrophils % (auto) 58.4 %; Platelet Estimate Decreased (Normal)
[2018-06-22 06:17] LABS: BUN Creatinine Ratio 16.1 (10-20); Est GFR (Non-African American) 118.2; Potassium 3.8 mmol/L (3.5-5.1)
[2018-06-22 06:28] LABS: Estimated Average Glucose 137 mg/dl; Hemoglobin A1C 6.4 % (4.5-5.6)
[2018-06-22] MEDS: NSS + 20MEQ KCL 20 MEQ/1,000 ML BAG IV SCH ×3 (07:34→22:42)
[2018-06-22] MEDS: THIAMINE HCL 100 MG TAB PO SCH (08:49)
[2018-06-22] MEDS: FOLIC ACID 1 MG in SYRINGE 9.8 ML IV SCH (08:49)
--- NOTE | 2018-06-22 09:17 | Surgery Progress Note ---
Date of Service June 22, 2018 Assessment & Plan (1) Abdominal pain: 47 year-old male with history of colon cancer s/p sigmoid colon resection in February of 2018 currently on chemotherapy who presented to emergency department with nausea, vomiting, and abdominal pain x [address] scan showing mildly dilated small bowel loops in left upper abdomen in which a low grade partial SBO is possible. There is subtle mesenteric swirling and tethering in which an internal hernia cannot be excluded. -vitals stable, afebrile - Lactic acid yesterday 1.4 - no leukocytosis - +flatus - abdomen no longer distended, soft, mildly tender but vastly improved - abdominal pain almost completely resolved Plan: Advance diet to clear liquids today, advance as tolerated Continue pain management as needed IV Zofran prn nausea OOB to chair and ambulate No acute surgical intervention required Dr. Del Real covering this weekend Dr. Grimm has seen and examined patient, agrees with above. Subjective feeling better today abdominal pain mostly resolved, clearly improved no nausea or vomiting passed flatus this morning Physical Exam Vital Signs (Past 24 Hours): Last Vital Signs Temp 36.9 C 06/22/18 07:26 Pulse 57 L 06/22/18 07:26 Resp 18 06/22/18 07:26 BP 116/68 06/22/18 07:26 Pulse Ox 96 06/22/18 07:26 Constitutional: WD/WN, vitals as above no acute distress Respiratory: no respiratory distress Gastrointestinal (Abdomen): Inspection/Auscultation: normal bowel sounds; abdomen not distended Percussion/Palpation: + abdomen tender (mild in RLQ but vastly improved) and abdomen soft; no guarding and abdomen not rigid Skin: no rashes, warm and dry Psychiatric: A+Ox3, euthymic affect Results & Data Laboratory Results 06/22/18 06/22/18 06/22/18 Range/Units 05:19 05:19 05:19 WBC 4.61 L (4.8-10.8) K/uL RBC 3.58 L (4.7-6.1) M/uL Hgb 10.8 L D (14.0-18.0) g/dL POC Hgb (14.0-18.0) g/dl Hct 32.8 L (42-52) % POC Hct (42-52) % MCV 91.6 (80-100) fL MCH 30.2 (25-34) pg MCHC 32.9 (32-36) g/dL RDW Std Deviation 46.8 H (36.4-46.3) fL RDW Coeff of Natasha 14.1 (11.5-14.5) % Plt Count 85 L (130-400) K/uL MPV 9.2 (7.4-10.4) fL Immature Gran % (Auto) 0.0 % Neut % (Auto) 58.4 % Lymph % (Auto) 34.3 % Lamar % (Auto) 6.7 % Eos % (Auto) 0.4 % Baso % (Auto) 0.2 % Immature Gran # (Auto) 0.00 (0.00-0.02) K/uL Neut # (Auto) 2.69 (1.4-6.5) K/uL Lymph # (Auto) 1.58 (1.2-3.4) K/uL Lamar # (Auto) 0.31 (0.11-0.59) K/uL Eos # (Auto) 0.02 (0-0.5) K/uL Baso # (Auto) 0.01 (0-0.2) K/uL Platelet Estimate Decreased (Normal) POC Sodium (135-144) mEq/L Sodium 144 (136-145) mmol/L POC Potassium (3.3-5.0) mEq/L Potassium 3.8 (3.5-5.1) mmol/L POC Chloride (101-112) mEq/L Chloride 113 H (98-107) mmol/L Carbon Dioxide 24 (21-32) mmol/L POC Total CO2 (24-31) mEq/l Anion Gap 8.0 (3-11) POC Anion Gap (16-25) mmol/L POC BUN (7-18) mg/dl BUN 10 (7-18) mg/dl Creatinine 0.63 D (0.6-1.4) mg/dl POC Creatinine (0.6-1.3) mg/dl Est Cr Clr Drug Dosing 116.0 ml/min Est GFR ( Amer) 137.0 Est GFR (Non-Af Amer) 118.2 BUN/Creatinine Ratio 16.1 (10-20) Glucose 78 (70-99) mg/dl POC Glucose (other) (70-99) mg/dl Estimat Average Glucose 137 mg/dl Hemoglobin A1c 6.4 H (4.5-5.6) % Lactate (0.4-2.0) mmol/L Calcium 8.0 L (8.5-10.1) mg/dl POC Ioniz Calcium Jake (1.12-1.32) mmol/l Magnesium 2.0 (1.8-2.4) mg/dl Total Bilirubin (0.2-1) mg/dl AST (15-37) U/L ALT (12-78) U/L Alkaline Phosphatase (45-117) U/L Total Protein (6.4-8.2) gm/dl Albumin (3.4-5.0) gm/dl Globulin (2.5-4.0) gm/dl Albumin/Globulin Ratio (0.9-2) Lipase (73-393) U/L Urine Color Urine Appearance (Clear) Urine pH (4.5-7.5) Ur Specific Chester (1.000-1.030) Urine Protein (Negative) Urine Glucose (UA) (Negative) Urine Ketones (Negative) Urine Blood (Negative) Urine Nitrite (Negative) Urine Bilirubin (Negative) Urine Urobilinogen (Negative) Ur Leukocyte Esterase (Negative) Urine WBC (Auto) (0-5) /hpf Urine RBC (Auto) (0-4) /hpf U Hyaline Cast (Auto) (0-5) /lpf U Epithel Cells (Auto) (0-5) /lpf Urine Bacteria (Auto) (Negative) 06/21/18 06/21/18 06/21/18 Range/Units 12:10 10:58 09:10 WBC (4.8-10.8) K/uL RBC (4.7-6.1) M/uL Hgb (14.0-18.0) g/dL POC Hgb 13.9 L (14.0-18.0) g/dl Hct (42-52) % POC Hct 41 L (42-52) % MCV (80-100) fL MCH (25-34) pg MCHC (32-36) g/dL RDW Std Deviation (36.4-46.3) fL RDW Coeff of Natasha (11.5-14.5) % Plt Count (130-400) K/uL MPV (7.4-10.4) fL Immature Gran % (Auto) % Neut % (Auto) % Lymph % (Auto) % Lamar % (Auto) % Eos % (Auto) % Baso % (Auto) % Immature Gran # (Auto) (0.00-0.02) K/uL Neut # (Auto) (1.4-6.5) K/uL Lymph # (Auto) (1.2-3.4) K/uL Lamar # (Auto) (0.11-0.59) K/uL Eos # (Auto) (0-0.5) K/uL Baso # (Auto) (0-0.2) K/uL Platelet Estimate (Normal) POC Sodium 142 (135-144) mEq/L Sodium (136-145) mmol/L POC Potassium 3.5 (3.3-5.0) mEq/L Potassium (3.5-5.1) mmol/L POC Chloride 102 (101-112) mEq/L Chloride (98-107) mmol/L Carbon Dioxide (21-32) mmol/L POC Total CO2 26 (24-31) mEq/l Anion Gap (3-11) POC Anion Gap 19.0 (16-25) mmol/L POC BUN 12 (7-18) mg/dl BUN (7-18) mg/dl Creatinine (0.6-1.4) mg/dl POC Creatinine 0.8 (0.6-1.3) mg/dl Est Cr Clr Drug Dosing ml/min Est GFR ( Amer) Est GFR (Non-Af Amer) BUN/Creatinine Ratio (10-20) Glucose (70-99) mg/dl POC Glucose (other) 155 H (70-99) mg/dl Estimat Average Glucose mg/dl Hemoglobin A1c (4.5-5.6) % Lactate 1.4 (0.4-2.0) mmol/L Calcium (8.5-10.1) mg/dl POC Ioniz Calcium Jake 1.15 (1.12-1.32) mmol/l Magnesium (1.8-2.4) mg/dl Total Bilirubin (0.2-1) mg/dl AST (15-37) U/L ALT (12-78) U/L Alkaline Phosphatase (45-117) U/L Total Protein (6.4-8.2) gm/dl Albumin (3.4-5.0) gm/dl Globulin (2.5-4.0) gm/dl Albumin/Globulin Ratio (0.9-2) Lipase (73-393) U/L Urine Color Dark Yellow Urine Appearance Turbid H (Clear) Urine pH 5.5 (4.5-7.5) Ur Specific [place] 1.033 H (1.000-1.030) Urine Protein 1+ H (Negative) Urine Glucose (UA) Trace H (Negative) Urine Ketones 3+ H (Negative) Urine Blood Trace H (Negative) Urine Nitrite Negative (Negative) Urine Bilirubin Negative (Negative) Urine Urobilinogen Negative (Negative) Ur Leukocyte Esterase Negative (Negative) Urine WBC (Auto) 1-5 (0-5) /hpf Urine RBC (Auto) 5-10 H (0-4) /hpf U Hyaline Cast (Auto) 10-30 H (0-5) /lpf U Epithel Cells (Auto) 20-30 H (0-5) /lpf Urine Bacteria (Auto) Negative (Negative) 06/21/18 06/21/18 Range/Units 09:03 09:03 WBC 7.91 (4.8-10.8) K/uL RBC 4.50 L (4.7-6.1) M/uL Hgb 13.8 L (14.0-18.0) g/dL POC Hgb (14.0-18.0) g/dl Hct 40.7 L (42-52) % POC Hct (42-52) % MCV 90.4 (80-100) fL MCH 30.7 (25-34) pg MCHC 33.9 (32-36) g/dL RDW Std Deviation 45.1 (36.4-46.3) fL RDW Coeff of Natasha 13.9 (11.5-14.5) % Plt Count 122 L (130-400) K/uL MPV 9.9 (7.4-10.4) fL Immature Gran % (Auto) 0.3 % Neut % (Auto) 87.6 % Lymph % (Auto) 8.3 % Lamar % (Auto) 3.4 % Eos % (Auto) 0.1 % Baso % (Auto) 0.3 % Immature Gran # (Auto) 0.02 (0.00-0.02) K/uL Neut # (Auto) 6.93 H (1.4-6.5) K/uL Lymph # (Auto) 0.66 L (1.2-3.4) K/uL Lamar # (Auto) 0.27 (0.11-0.59) K/uL Eos # (Auto) 0.01 (0-0.5) K/uL Baso # (Auto) 0.02 (0-0.2) K/uL Platelet Estimate (Normal) POC Sodium (135-144) mEq/L Sodium 141 (136-145) mmol/L POC Potassium (3.3-5.0) mEq/L Potassium 3.5 (3.5-5.1) mmol/L POC Chloride (101-112) mEq/L Chloride 104 (98-107) mmol/L Carbon Dioxide 26 (21-32) mmol/L POC Total CO2 (24-31) mEq/l Anion Gap 11.0 (3-11) POC Anion Gap (16-25) mmol/L POC BUN (7-18) mg/dl BUN 12 (7-18) mg/dl Creatinine 0.96 (0.6-1.4) mg/dl POC Creatinine (0.6-1.3) mg/dl Est Cr Clr Drug Dosing 74.9 ml/min Est GFR ( Amer) 109.4 Est GFR (Non-Af Amer) 94.4 BUN/Creatinine Ratio 12.8 (10-20) Glucose 151 H (70-99) mg/dl POC Glucose (other) (70-99) mg/dl Estimat Average Glucose mg/dl Hemoglobin A1c (4.5-5.6) % Lactate (0.4-2.0) mmol/L Calcium 9.4 (8.5-10.1) mg/dl POC Ioniz Calcium Jake (1.12-1.32) mmol/l Magnesium (1.8-2.4) mg/dl Total Bilirubin 0.5 (0.2-1) mg/dl AST 23 (15-37) U/L ALT 32 (12-78) U/L Alkaline Phosphatase 77 (45-117) U/L Total Protein 8.1 (6.4-8.2) gm/dl Albumin 4.5 (3.4-5.0) gm/dl Globulin 3.6 (2.5-4.0) gm/dl Albumin/Globulin Ratio 1.2 (0.9-2) Lipase 225 (73-393) U/L Urine Color Urine Appearance (Clear) Urine pH (4.5-7.5) Ur Specific Chester (1.000-1.030) Urine Protein (Negative) Urine Glucose (UA) (Negative) Urine Ketones (Negative) Urine Blood (Negative) Urine Nitrite (Negative) Urine Bilirubin (Negative) Urine Urobilinogen (Negative) Ur Leukocyte Esterase (Negative) Urine WBC (Auto) (0-5) /hpf Urine RBC (Auto) (0-4) /hpf U Hyaline Cast (Auto) (0-5) /lpf U Epithel Cells (Auto) (0-5) /lpf Urine Bacteria (Auto) (Negative)
[2018-06-22] MEDS: PANTOprazole 40 MG in SYRINGE 0 ML IV SCH (11:02)
--- NOTE | 2018-06-22 17:37 | Hospitalist Progress Note ---
Date of Service June 22, 2018 Assessment & Plan (1) Small bowel obstruction: Patient is a 47 yr male with H/O colon cancer S/P sigmoid resection, presents with a small-bowel obstruction. Small Bowel Obstruction: --CT ABD: Interval colonic surgery with removal of the sigmoid stents. Normal appendix. Mildly dilated left upper quadrant small bowel loops. The findings may indicate a low-grade partial small bowel obstruction. A high-grade bowel obstruction is not felt to be present. There is a subtle mesenteric swirl pattern, as well as subtle tethering of the mesentery. And internal hernia cannot be excluded. --Slowly improving --Continue Conservative management --Clear liquid diet --IV fluids, Pain control --No plan for surgery --Appreciate Surgery Input Bradycardia: Minimize pain meds as able monitor H/O colon cancer S/P sigmoid resection On Chemotherapy Follows with hematology/oncology Pancytopenia Likely due to Chemotherapy Monitor H/O Alcoholism: Denies drinking currently Continue thiamine, folic acid Prediabetes: A1C:6.4 Advise dietary changes DVT Px: SCDs Re: Thrombocytopenia Code Status Full Code Disposition: Expect to discharge home when stable Subjective Patient is seen and examined at bedside Feels better today Abdominal pain resolved Denies nausea, vomiting +Flatus, BM Denies chest pain, SOB, dizziness Family at bedside Physical Exam Vital Signs (Past 24 Hours): Last Vital Signs Temp 36.7 C 06/22/18 15:25 Pulse 54 L 06/22/18 15:25 Resp 18 06/22/18 15:25 BP 101/58 L 06/22/18 15:25 Pulse Ox 95 06/22/18 15:25 Physical Exam: Physical Exam: Vitals signs as noted above General Appearance:Thin, no apparent distress Head: normocephalic, Atraumatic Eyes: normal inspection, EOMI Neck: supple, Trachea midline Respiratory/Chest: Normal breath sounds, CTA Cardiovascular: S1, S2, No murmur Abdomen/GI:Soft, Mild RLQ tender, Bowel sounds present Extremities/Musculoskelatal:normal inspection, no edema Neurologic/Psych:AAOX3, grossly no focal neurological deficits Skin: normal color, warm Results & Data Laboratory Results Short CBC 06/22/18 Range/Units 05:19 WBC 4.61 L (4.8-10.8) K/uL Hgb 10.8 L D (14.0-18.0) g/dL Hct 32.8 L (42-52) % Plt Count 85 L (130-400) K/uL BMP 06/22/18 05:19 Sodium 144 Potassium 3.8 Chloride 113 H Carbon Dioxide 24 BUN 10 Creatinine 0.63 D Glucose 78 Calcium 8.0 L
[2018-06-23] MEDS: NSS + 20MEQ KCL 20 MEQ/1,000 ML BAG IV SCH ×3 (05:58→22:18)
[2018-06-23 06:42] LABS: Hematocrit (blood only) 31.1 % (42-52); Hemoglobin 10.2 g/dL (14.0-18.0); Mean Corpuscular Hgb Conc 32.8 g/dL (32-36); Mean Corpuscular Volume 91.2 fL (80-100); RDW Coefficient of Variation 14.3 % (11.5-14.5); Red Blood Count 3.41 M/uL (4.7-6.1); White Blood Count 2.52 K/uL (4.8-10.8)
[2018-06-23 07:18] LABS: BUN Creatinine Ratio 7.7 (10-20); Calcium 7.7 mg/dl (8.5-10.1); Creatinine Clr Calc Pharmacy 109.1 ml/min; Est GFR (African American) 133.6; Est GFR (Non-African American) 115.2; Magnesium 1.8 mg/dl (1.8-2.4); Potassium 3.8 mmol/L (3.5-5.1)
[2018-06-23 07:35] LABS: Mean Platelet Volume 9.9 fL (7.4-10.4); Platelet Count 54 K/uL (130-400); Platelet Estimate Decreased (Normal)
[2018-06-23] MEDS: THIAMINE HCL 100 MG TAB PO SCH (08:22)
[2018-06-23] MEDS: FOLIC ACID 1 MG in SYRINGE 9.8 ML IV SCH (08:22)
[2018-06-23] MEDS: PANTOprazole 40 MG in SYRINGE 0 ML IV SCH (12:06)
--- NOTE | 2018-06-23 12:40 | Surgery Progress Note ---
Date of Service June 23, 2018 Assessment & Plan (1) Small bowel obstruction: clinically doing well can slowly advance diet potential d/c home later today or tomorrow. Subjective feeling well. no pain. no nausea. +BM Physical Exam Vital Signs (Past 24 Hours): Last Vital Signs Temp 36.8 C 06/23/18 07:08 Pulse 51 L 06/23/18 07:08 Resp 16 06/23/18 07:08 BP 95/57 L 06/23/18 07:08 Pulse Ox 95 06/23/18 07:08 Physical Exam: alert. nad abd: soft. nt. nd.
--- NOTE | 2018-06-23 16:31 | Hospitalist Progress Note ---
Date of Service June 23, 2018 Assessment & Plan (1) Small bowel obstruction: Patient is a 47 yr male with H/O colon cancer S/P sigmoid resection, presents with a small-bowel obstruction. Small Bowel Obstruction: --CT ABD: Interval colonic surgery with removal of the sigmoid stents. Normal appendix. Mildly dilated left upper quadrant small bowel loops. The findings may indicate a low-grade partial small bowel obstruction. A high-grade bowel obstruction is not felt to be present. There is a subtle mesenteric swirl pattern, as well as subtle tethering of the mesentery. And internal hernia cannot be excluded. --Slowly improving --Continue Conservative management --Advance to low fiber diet --IV fluids, Pain control --No plan for surgery --Appreciate Surgery Input --Clinically improved Bradycardia: Minimize pain meds as able monitor H/O colon cancer S/P sigmoid resection On Chemotherapy Follows with hematology/oncology Pancytopenia Likely due to Chemotherapy Monitor Platelets Denies bleeding issues H/O Alcoholism: Denies drinking currently Continue thiamine, folic acid Prediabetes: A1C:6.4 Advise dietary changes DVT Px: SCDs Re: Thrombocytopenia Code Status Full Code Disposition: Expect to discharge home when stable Subjective Patient is seen and examined at bedside Doing well today Had BM Tolerating diet Denies chest pain, SOB, dizziness, abd pain, nausea Thrombocytopenia noted No bleeding issues Physical Exam Vital Signs (Past 24 Hours): Last Vital Signs Temp 36.8 C 06/23/18 14:59 Pulse 46 L 06/23/18 14:59 Resp 17 06/23/18 14:59 BP 96/54 L 06/23/18 14:59 Pulse Ox 98 06/23/18 14:59 Physical Exam: Physical Exam: Vitals signs as noted above General Appearance:Thin, no apparent distress Head: normocephalic, Atraumatic Eyes: normal inspection, EOMI Neck: supple, Trachea midline Respiratory/Chest: Normal breath sounds, CTA Cardiovascular: S1, S2, No murmur, +Bradycardia Abdomen/GI:Soft, non tender, Bowel sounds present Extremities/Musculoskelatal:normal inspection, no edema Neurologic/Psych:AAOX3, grossly no focal neurological deficits Skin: normal color, warm
[2018-06-24] MEDS: NSS + 20MEQ KCL 20 MEQ/1,000 ML BAG IV SCH (05:45)
[2018-06-24 06:08] LABS: Hematocrit (blood only) 32.6 % (42-52); Hemoglobin 10.6 g/dL (14.0-18.0); Mean Corpuscular Hgb Conc 32.5 g/dL (32-36); Mean Corpuscular Volume 91.6 fL (80-100); RDW Coefficient of Variation 14.3 % (11.5-14.5); RDW Standard Deviation 45.9 fL (36.4-46.3); Red Blood Count 3.56 M/uL (4.7-6.1); White Blood Count 2.03 K/uL (4.8-10.8)
[2018-06-24 06:12] LABS: Mean Platelet Volume 9.6 fL (7.4-10.4); Platelet Count 50 K/uL (130-400)
[2018-06-24 06:37] LABS: BUN Creatinine Ratio 9.4 (10-20); Creatinine Clr Calc Pharmacy 114.2 ml/min; Est GFR (African American) 136.1; Est GFR (Non-African American) 117.4; Potassium 3.9 mmol/L (3.5-5.1)
[2018-06-24] MEDS ORDERED: PANTOprazole 40 MG TAB PO SCH (09:00)
[2018-06-24] MEDS: THIAMINE HCL 100 MG TAB PO SCH (09:06)
[2018-06-24] MEDS: FOLIC ACID 1 MG in SYRINGE 9.8 ML IV SCH (09:07)
--- NOTE | 2018-06-24 12:43 | Hospitalist Progress Note ---
Date of Service June 24, 2018 Assessment & Plan (1) Small bowel obstruction: Patient is a 47 yr male with H/O colon cancer S/P sigmoid resection, presents with a small-bowel obstruction. Small Bowel Obstruction: --CT ABD: Interval colonic surgery with removal of the sigmoid stents. Normal appendix. Mildly dilated left upper quadrant small bowel loops. The findings may indicate a low-grade partial small bowel obstruction. A high-grade bowel obstruction is not felt to be present. There is a subtle mesenteric swirl pattern, as well as subtle tethering of the mesentery. And internal hernia cannot be excluded. --Slowly improving --Continue Conservative management --Advance to low fiber diet --IV fluids, Pain control --No plan for surgery --Appreciate Surgery Input --Clinically improved --Had BM Bradycardia: Minimize pain meds as able monitor H/O colon cancer S/P sigmoid resection On Chemotherapy Follows with hematology/oncology Pancytopenia Likely due to Chemotherapy Monitor Platelets Denies bleeding issues H/O Alcoholism: Denies drinking currently Continue thiamine, folic acid Prediabetes: A1C:6.4 Advise dietary changes DVT Px: SCDs Re: Thrombocytopenia Code Status Full Code Disposition: Plan to discharge home today Subjective Patient is seen and examined at bedside No new complaints Had BM Tolerated diet Denies chest pain, SOB, dizziness, abd pain, nausea No bleeding issues Discussed with Surgery today Physical Exam Vital Signs (Past 24 Hours): Last Vital Signs Temp 37.0 C 06/24/18 07:21 Pulse 50 L 06/24/18 07:21 Resp 14 06/24/18 07:21 BP 115/69 06/24/18 07:21 Pulse Ox 99 06/24/18 07:21 Physical Exam: Physical Exam: Vitals signs as noted above General Appearance:Thin, no apparent distress Head: normocephalic, Atraumatic Eyes: normal inspection, EOMI Neck: supple, Trachea midline Respiratory/Chest: Normal breath sounds, CTA Cardiovascular: S1, S2, No murmur, +Bradycardia Abdomen/GI:Soft, non tender, Bowel sounds present Extremities/Musculoskelatal:normal inspection, no edema Neurologic/Psych:AAOX3, grossly no focal neurological deficits Skin: normal color, warm Results & Data Laboratory Results Short CBC 06/24/18 Range/Units 05:40 WBC 2.03 L (4.8-10.8) K/uL Hgb 10.6 L (14.0-18.0) g/dL Hct 32.6 L (42-52) % Plt Count 50 L (130-400) K/uL [facility] 06/24/18 05:40 Sodium 141 Potassium 3.9 Chloride 110 H Carbon Dioxide 28 BUN 6 L Creatinine 0.64 Glucose 99 Calcium 8.0 L
--- NOTE | 2018-06-24 12:47 | Discharge Summary ---
Date of Service June 24, 2018 Admission HPI Per Admitting Provider CHIEF COMPLAINT: Abdominal pain. HISTORY OF PRESENT ILLNESS: This is a 47-year-old male with past medical history significant for colon cancer, status post sigmoid colon resection in February 2018, currently on chemotherapy every 2 weeks for 12 weeks, presents with abdominal pain, nausea and vomiting. The patient's pain started yesterday and he has few episodes of vomiting, moderate in severity, currently improved with pain medications. He says he moved his bowels yesterday and it was normal. No blood in the stools or black stools. Normal bladder movements. No burning micturition, no hematuria. He says his appetite is okay until yesterday, he was sleeping okay and he said he might have lost a few pounds of weight. Denies any chest pain, no shortness of breath, no cough, no fever, no chills, no headache, no blurred vision, no earache, no runny nose, no sore throat, no difficulty swallowing. No rash, no easy bruising or bleeding. Currently, resting comfortable and hemodynamically stable. Admission Exam Per Admitting Provider PHYSICAL EXAMINATION: GENERAL: The patient is of moderate build, not in acute distress. VITAL SIGNS: Temperature 36.7, pulse 44, blood pressure 155/84, oxygen 97% on room air. HEENT: No pallor, no icterus. Pupils equal, round, reactive to light. NECK: No JVD or neck masses, no carotid bruit. CARDIOVASCULAR: S1, S2 heard. Bradycardia. No murmurs. RESPIRATORY SYSTEM: Clear to auscultation bilaterally. No wheezing, no crackles. ABDOMEN: Soft. Bowel sounds, sluggish. Diffuse abdominal tenderness. Mild guarding. No distention seen. CENTRAL NERVOUS SYSTEM: Cranial nerves II-XII grossly intact. Nonfocal. EXTREMITIES: No edema, no erythema. Principal Diagnosis Discharge Information Discharge Diagnosis Small Bowel Obstruction Discharge Goals Decrease discomfort,Improve disease control, Improve function Discharge Activity Limitations Resume your previous activity Discharge Data Allergies Allergy/AdvReac Type Severity Reaction Status Date / Time aspirin AdvReac Unknown Nose Bleed Verified 06/21/18 09:23 Consultations 06/21/18 12:01 ED Decision to Admit Stat 06/21/18 13:59 Consult Case Management - Discharge Planning Routine Consult General Surgery Routine Procedures Performed CT ABD: 1. Interval colonic surgery with removal of the sigmoid stents 2. Normal appendix 3. Mildly dilated left upper quadrant small bowel loops. The findings may indicate a low-grade partial small bowel obstruction. A high-grade bowel obstruction is not felt to be present. There is a subtle mesenteric swirl pattern, as well as subtle tethering of the mesentery. And internal hernia cannot be excluded. Ordered Studies 06/21/18 09:00 CT abd pelvis IV con only Stat Hospital Course (1) Small bowel obstruction: Patient is a 47 yr male with H/O colon cancer S/P sigmoid resection, presents with a small-bowel obstruction. Small Bowel Obstruction: --CT ABD: Interval colonic surgery with removal of the sigmoid stents. Normal appendix. Mildly dilated left upper quadrant small bowel loops. The findings may indicate a low-grade partial small bowel obstruction. A high-grade bowel obstruction is not felt to be present. There is a subtle mesenteric swirl pattern, as well as subtle tethering of the mesentery. And internal hernia cannot be excluded. --Slowly improving --Continue Conservative management --Advance to low fiber diet --IV fluids, Pain control --No plan for surgery --Appreciate Surgery Input --Clinically resolved --Had BM Bradycardia: Minimize pain meds as able monitor H/O colon cancer S/P sigmoid resection On Chemotherapy Follows with hematology/oncology Pancytopenia Likely due to Chemotherapy Monitor Platelets Denies bleeding issues H/O Alcoholism: Denies drinking currently Continue thiamine, folic acid Prediabetes: A1C:6.4 Advise dietary changes DVT Px: SCDs Re: Thrombocytopenia Code Status Full Code Disposition: Plan to discharge home today Total Time Total Time Spent Total Time Spent (In Minutes): 33 minutes Total Time Includes: Examination of the Patient, Discharge Planning, Medication Reconciliation, Communication With Other Providers and Other Discharge Plan Discharge Items Patient Disposition: Home - Self-Care Reason For Visit: ABDOMINAL PAIN Discharge Diagnosis: Small Bowel Obstruction Discharge Goals: Decrease discomfort, Improve disease control and Improve function Activity: Resume your previous activity Exercise/Sports: Gradually increase as tolerated Non-emergency contact: Primary Care Provider and Surgeon Call non-emergency contact if: you have any medication questions, your symptoms worsen, your pain is not controlled, your pain is worsening, your pain is unusual for you, your pain is concerning for you and you have a fever Follow-up/Referrals: Harish Irene [Primary Care Provider] - Diet: Low Fiber Addtl Provider Instructions: Follow up with your PCP in 1 week Follow up with your Surgeon / in 4 weeks Follow up with your Supplier Quality Engineer/Oncologist for management of low platelets as advised Seek immediate medical attention if your symptoms reoccur or worsen Prescriptions: Continued multivitamin Tablet 1 tab PO DAILY RF: 0 thiamine HCl (vitamin B1) 100 mg Tablet 100 mg PO DAILY RF: 0 Stand-Alone Forms: Call Back Authorization, [facility]/Other Patient Handouts: Prediabetes, Diabetes Meal Planning Discharge Orders: Discharge Order (Routine); Ordered 06/24/18 Ordered By: Roshan Handley Admission Data Admit Date/Time: 06/21/18 12:40 Attending Provider: Roshan Handley Admit Provider: Chad Martinez Primary Care Provider: Harish Irene Other Providers: Chad Martinez ; Curly Grimm Service: Medical Other Interventions: Discharge Summary Assessment (RN) Last Done: 06/24/18 13:11 Pending Studies at Discharge: No DC Date/Time DO NOT enter until pt leaves facility: 06/24/18 14:38
--- NOTE | 2018-06-24 14:09 | Surgery Progress Note ---
Date of Service June 24, 2018 Assessment & Plan (1) Small bowel obstruction: clinically resolved carl diet ok for d/c. Subjective feeling well. no pain. no nausea. +BM. carl regular diet Physical Exam Vital Signs (Past 24 Hours): Last Vital Signs Temp 37.0 C 06/24/18 13:11 Pulse 50 L 06/24/18 13:11 Resp 14 06/24/18 13:11 BP 150/84 H 06/24/18 13:11 Pulse Ox 99 06/24/18 13:11 Physical Exam: alert. nad abd: soft. nt. nd. +bs's
== END 2018-06-24 14:38 | disposition home or self-care (01) | DRG 393 ==
LOC: ED 08:35 → 3W 12:40